=== PATIENT | male | born 1940 | race Caucasian/White ===

== ENCOUNTER → 2017-05-23 | Outpatient (CLI) | payer OTHER ==
--- NOTE | 2017-06-09 10:18 | RSPPFT ---
DATE OF PROCEDURE: 05/23/17 COMMENTS: VOLUMES DYNAMIC: FVC and FEV1 normal. STATIC: TLC, FRC normal; RV very mildly increased. FLOWS: FEV1% normal, FEF 25-75 mildly reduced. DIFFUSION; Normal. FLOW VOLUME LOOP: Terminal airflow obstruction. IMPRESSION: Very mild obstructive ventilatory defect with no improvement post-bronchodilator. Airways resistance is increased. Diffusion capacity is normal.
== END ==
LOC: PHRSP 11:21
PROVIDERS: ATTEND Internal Medicine
DX: J44.9 Chronic obstructive pulmonary disease, unspecified (principal)
CPT/HCPCS: 94060; 94620; 94726; 94729